=== PATIENT | male | born 1935 | race Caucasian/White ===

== ENCOUNTER 2017-10-25 12:28 | Inpatient (IN) | payer MEDICARE, OTHER ==
[~2017-10-25] VITALS: Ht 162.6 cm; Wt 84.8 kg
[~2017-10-25 12:28] MED LIST: ALBUTEROL2.5 MG/0.1 INH; AMARYL4 MG PO; ASPIR 8181 MG PO; BRILINTA90 MG PO; COLESTIPOL HCL1 G1 PO; COZAAR 50 MG TA50 M2 PO; DILTIAZEM 24HR180 M2 PO; IMDUR 30 MG TAB30 M1 PO; IRON325 PO; LANTUS100 UNIT/M SUBQ; LASIX 20 MG TAB20 MG PO; LASIX 40 MG TAB40 M2 PO; LEVAQUIN 500 M500 M2 PO; LIPITOR40 MG PO; LOPRESSOR50 PO; MIRAPEX0.5 MG PO; NEURONTIN 300300 M1 PO; NITROGLYCERIN0.4 MG SUBLING; NOVOLOG100 UNIT/1 SUBQ; OMEPRAZOLE20 M1 PO; POTASSIUM20 PO; PRAVACHOL40 MG PO; PREDNISONE 10 M10 MG PO; PREDNISONE 20 M20 MG PO; PROAIR HFA8.5 GM INH; SPIRIVA INH; SYMBICORT80 MCG/4.1 INH; TYLENOL325 MG PO
[2017-10-25 12:56] LABS: HEMATOCRIT 46.8 % (42.0-52.0); HEMOGLOBIN 15.3 gm/dL (14.0-18.0); MCH 25.8 pg (26.0-34.0); MCHC 32.8 g/dL (28.0-37.0); MCV 78.6 fL (80.0-100.0); NUCLEATED RBCS 0 /100WBC; PLATELET COUNT* 241 thou/uL (150-400); RBC 5.95 mil/uL (4.50-6.00); RDW-CV 15.5 % (10.5-14.5); WBC 19.6 thou/uL (4.0-11.0)
[2017-10-25 13:06] LABS: ANION GAP 7 mmol/L (7-16); BUN 12 mg/dL (7-18); CALCIUM 8.7 mg/dL (8.5-10.1); CHLORIDE 97 mmol/L (98-107); CO2 30 mmol/L (21-32); CREATININE 0.9 mg/dL (0.6-1.3); GLUCOSE 162 mg/dL (70-99); SODIUM 134 mmol/L (136-145)
[2017-10-25 13:07] LABS: APTT 24.6 Seconds (25.0-31.3); PROTIME 9.9 Seconds (9.20-11.50)
[2017-10-25 13:09] LABS: POTASSIUM 3.6 mmol/L (3.5-5.1)
[2017-10-25 13:16] LABS: ABSOLUTE LYMPHOCYTES 0.4 thou/uL (0.8-5.3); ABSOLUTE MONOCYTES 0.8 thou/uL (0.0-1.2); ABSOLUTE NEUTROPHILS 18.4 thou/uL (1.6-8.1); PLATELET ESTIMATE ADEQUATE
[2017-10-25 13:17] LABS: ANISOCYTOSIS 1+; POIKILOCYTOSIS 1+; TOXIC GRANULATION 1+
[2017-10-25 13:23] LABS: ALBUMIN 3.3 g/dL (3.4-5.0); ALKALINE PHOSPHATASE 87 U/L (46-116); CK-MB MASS 1.8 ng/mL (<0.5-3.6); LIPASE 113 U/L (73-393); MAGNESIUM 1.9 mg/dL (1.8-2.4); NT-PRO BRAIN NAT PEPTIDE 180 pg/mL (<300); SGOT 19 U/L (15-37); SGPT 22 U/L (30-65); TOTAL BILIRUBIN 0.7 mg/dL (<0.1-1.0); TOTAL PROTEIN 7.2 g/dL (6.4-8.2); TROPONIN-I LEVEL <0.06 ng/mL (<0.06)
[2017-10-25] MEDS ORDERED: COLESTID1 GM PO (13:42)
[2017-10-25 14:45] VITALS: BP 126/77
[2017-10-25 15:17] VITALS: BP 139/68
[2017-10-25] MEDS ORDERED: HUMALOG100 UNIT/1 SUBQ (15:34)
[2017-10-25 20:30] VITALS: BP 142/73
[2017-10-25 22:25] LABS: INFLUENZA B ANTIGEN None Detected (None Detect)
[2017-10-26] VITALS: BP 103/53
[2017-10-26 00:53] LABS: URINE BILIRUBIN NEGATIVE (Negative); URINE BLOOD TRACE (Negative); URINE CLARITY CLEAR; URINE COLOR YELLOW; URINE GLUCOSE-RANDOM NEGATIVE (Negative); URINE KETONES NEGATIVE (Negative); URINE LEUKOCYTES-REFLEX NEGATIVE (Negative); URINE NITRITE-REFLEX NEGATIVE (Negative); URINE PROTEIN NEGATIVE (Negative); URINE UROBILINOGEN 0.2 E.U./dl (0.2-1.0)
[2017-10-26 04:11] VITALS: BP 106/53
[2017-10-26 09:30] VITALS: BP 162/60
[2017-10-26 11:58] VITALS: BP 136/53
--- NOTE | 2017-10-26 12:16 | EKG ---
[place] [address] ELECTROCARDIOGRAM REPORT Name: LINDY SCANLON Room: [address] ADM IN R.#: [id number] Admission: 10/25/17 Attend Phys: Arjun Chase, Discharge: Date of : 39 Report #: [id number] THIS REPORT FOR: //name// [facility] ED Test Date: 2017-10-25 Test Time: 12:34:57 Pat Name: LINDY SCANLON Department: Room: [facility] Gender: M Inspector Subassembly: [place] : 1935 Requested By: Horacio Mcneill Order Number: [id number] MD: Arturo Leblanc Measurements Intervals [place] Rate: 83 P: -30 SD: 200 QRS: -53 QRSD: 110 T: 110 QT: 370 QTc: 435 Interpretive Statements Sinus rhythm Supraventricular complexes left axis LVH with secondary repolarization abnormality Compared to ECG 09/06/2017 07:39:26 no change Electronically Signed On 10-26-2017 12:16:45 MANAGER MEDICARE MARKETING by Arturo Leblanc [email or web address] <ELECTRONICALLY SIGNED> By: Arturo Leblanc MD, [facility] 10/26/17 1216 1234 1234 Arturo Leblanc MD, [facility] /EPI
--- NOTE | 2017-10-26 12:18 | EKG ---
[place] [address] ELECTROCARDIOGRAM REPORT Name: LINDY SCANLON Room: [address] ADM IN .R.#: [id number] Admission: 10/25/17 Attend Phys: Arjun Chase, Discharge: Date of : 39 Report #: [id number] THIS REPORT FOR: //name// [facility] ED Test Date: 2017-10-25 Test Time: 12:46:59 Pat Name: LINDY SCANLON Department: Room: [facility] Gender: M Rn Enterostomal: [place] : 1935 Requested By: Horacio Mcneill Order Number: [id number] MD: Arturo Leblanc Measurements Intervals [place] Rate: 85 P: [place]: QRS: -53 QRSD: 109 T: 102 QT: 365 QTc: 434 Interpretive Statements sinus rhythm with pac's Left anterior fascicular block Abnormal R-wave progression, early transition LVH with secondary repolarization abnormality Electronically Signed On 10-26-2017 12:17:53 SUPERVISOR GAS METER REPAIR by Arturo Leblanc [email or web address] <ELECTRONICALLY SIGNED> By: Arturo Leblanc MD, [facility] 10/26/17 1217 1246 45 Arturo Leblanc MD, [facility] /EPI
[2017-10-26 16:00] VITALS: BP 118/61
[2017-10-26 20:00] VITALS: BP 118/58
[2017-10-27 00:15] VITALS: BP 109/47
[2017-10-27 04:00] VITALS: BP 131/61
[2017-10-27 05:19] LABS: HEMATOCRIT 42.4 % (42.0-52.0); HEMOGLOBIN 13.9 gm/dL (14.0-18.0); MCH 25.9 pg (26.0-34.0); MCHC 32.9 g/dL (28.0-37.0); MCV 78.7 fL (80.0-100.0); MPV 7.7 fl. (7.2-11.1); RBC 5.38 mil/uL (4.50-6.00); RDW-CV 15.6 % (10.5-14.5); WBC 9.4 thou/uL (4.0-11.0)
[2017-10-27 08:00] VITALS: BP 135/70
[2017-10-27 08:41] LABS: ALBUMIN 2.7 g/dL (3.4-5.0); CREATININE 1.1 mg/dL (0.6-1.3); TOTAL BILIRUBIN 0.8 mg/dL (<0.1-1.0); TOTAL PROTEIN 5.6 g/dL (6.4-8.2)
[2017-10-27 11:51] VITALS: BP 124/68
[2017-10-27] MEDS ORDERED: TAMIFLU75 MG PO (16:06)
[2017-10-27] MEDS ORDERED: KEFLEX500 M1 PO (16:07)
[2017-10-27 16:23] VITALS: BP 124/68
--- NOTE | 2017-10-28 17:17 | CON ---
[address] [address] CONSULTATION Name: LINDY SCANLON Room: [address] IN .R.#: [id number] Admission: 10/25/17 Attend Phys: Arjun Chase, Discharge: 10/27/17 Date of : 39 Report #: [id number] THIS REPORT FOR: //name// CC: Rober Chase DATE OF SERVICE: 10/26/2017 HISTORY OF PRESENT ILLNESS: The patient is an 82-year-old white male who I was asked to see in the hospital today after he complained of chest pain. The patient has a long history of diabetes and hypertension. He has had multiple hospitalizations here at [facility]. He was admitted here in 2014 with COPD exacerbation. He does use an inhaler at home. He does have a history of severe sleep apnea. 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 The patient then presented on 09/03/2017 with chest pain and shortness of breath. He was seen by my partner, Dr. Dickerson. He underwent a cardiac catheterization. He was noted to be in atrial fibrillation. The cardiac catheterization performed on 09/03/2017 from the right femoral artery revealed 75% stenosis of the LAD, 90% narrowing of the distal LAD. Circumflex and right coronary had no significant disease. Ejection fraction 60%. Dr. Dickerson then placed drug-eluting stents in the LAD. He has apparently done well since that time. However, recently he has had a cough and not felt well. Yesterday, he felt sharp pain in the chest occurred off and on throughout the day. It lasted only a few seconds. There is no radiation of the pain. He had run a fever recently. Denied any increased shortness of breath or edema. He denied any palpitations or syncope. He had felt fatigued. He finally came to the Emergency Room last night. He was admitted for further evaluation and treatment. PAST MEDICAL HISTORY: Otherwise significant for umbilical hernia repair. He has diabetes, hypertension, sleep apnea, history of hiatal hernia, Mcclain esophagus. MEDICATIONS: His medications on admission consists of Colestid, albuterol nebulizer, diltiazem CD, aspirin, insulin, pravastatin, Imdur, Brilinta, furosemide, omeprazole, potassium. ALLERGIES: He has no known drug allergies. FAMILY HISTORY: Negative for heart disease. SOCIAL HISTORY: He is . He and his live in [place]. He is retired from [employer]. Quit smoking years ago[place] [address] CONSULTATION Name: LINDY SCANLON Room: [address] [place] [facility]#: [id number] Admission: 10/25/17 Attend Phys: Arjun Chase, Discharge: 10/27/17 Date of : 39 Report #: [id number] REVIEW OF SYSTEMS: He has had no history of liver disease, kidney disease, cancer, psychiatric illness, chronic skin condition. PHYSICAL EXAMINATION: GENERAL: Revealed an elderly male, lying in bed. He was coughing frequently. VITAL SIGNS: He had a blood pressure of 120/70, pulse 70, and his temperature last night of 100. Mucous members moist. HEENT: He is anicteric. Conjunctivae pink. NECK: Supple, no carotid bruits. CHEST: Revealed expiratory wheezes bilaterally. CARDIOVASCULAR: Regular rate and rhythm. No significant murmur. ABDOMEN: Obese, soft, nontender. EXTREMITIES: No edema. Dorsalis pedis pulse 1+ bilaterally. SKIN: Cool and dry. RADIOLOGICAL DATA: His ECG showed sinus rhythm, occasional PAC, left axis deviation. On the monitor last night, he had frequent PACs. His workup in the Emergency Room last night, portable chest x-ray showed normal heart size, clear lung styles. Carotid Doppler study last March showed no high-grade stenosis. Previous MRI of the head last March showed atrophy, white matter changes, multiple remote lacunar type infarctions. He had CT scan of the chest last night using a PE protocol that showed no pulmonary embolus, coronary calcification. LABORATORY DATA: His lab work last night, sodium 134, creatinine 0.9. Liver function studies were normal. Troponins 0.06. His white blood cell count 19.6, hemoglobin 15.3. IMPRESSION AND RECOMMENDATIONS: 1. Chest pain. Atypical for angina. Suspect noncardiac. Recommend no cardiac workup. 2. The patient had drug-eluting stents placed a month ago. I will continue aspirin and Brilinta. 3. Bronchitis. 4. Chronic obstructive pulmonary disease. 5. Hypertension. The patient has been on a calcium delta. 6. Diabetes. 7. Hyperlipidemia. The patient is on a statin drug. 8. History of Mcclain esophagus. 9. History of hiatal hernia. 10. Previous transient ischemic attack. 11. Paroxysmal atrial fibrillation. The patient does not appear to be a very good candidate for anticoagulation because of his history of gastrointestinal [address] [address] CONSULTATION Name: LINDY SCANLON Room: [address] IN [facility].#: [id number] Admission: 10/25/17 Attend Phys: Arjun Chase, Discharge: 10/27/17 Date of : 39 Report #: [id number]. However, if he has recurrent atrial arrhythmias, I would consider antiarrhythmic therapy. <ELECTRONICALLY SIGNED> By: Arturo Leblanc MD, FACC 10/28/17 1717 1023 2302Dro Leblanc MD, FACC /nt
== END 2017-10-27 18:50 | disposition home health service (06) | DRG 194 ==
LOC: M.ERS 12:28 → M.TBA-ER 14:21 → M.2W 14:21
PROVIDERS: Emergency Medicine Emergency Medical Services; ADMIT Family Medicine
DX: J10.1 Influenza due to other identified influenza virus with other respiratory manifestations (principal); I50.22 Chronic systolic (congestive) heart failure; R65.10 Systemic inflammatory response syndrome (SIRS) of non-infectious origin without acute organ dysfunction; E44.0 Moderate protein-calorie malnutrition; I25.119 Atherosclerotic heart disease of native coronary artery with unspecified angina pectoris; I48.0 Paroxysmal atrial fibrillation; Z96.651 Presence of right artificial knee joint; K22.70 Barrett's esophagus without dysplasia; E78.5 Hyperlipidemia, unspecified; I11.0 Hypertensive heart disease with heart failure; J44.9 Chronic obstructive pulmonary disease, unspecified; E11.65 Type 2 diabetes mellitus with hyperglycemia; Z79.4 Long term (current) use of insulin; Z87.891 Personal history of nicotine dependence; Z82.49 Family history of ischemic heart disease and other diseases of the circulatory system; Z95.5 Presence of coronary angioplasty implant and graft; Z98.42 Cataract extraction status, left eye; Z98.41 Cataract extraction status, right eye; Z90.49 Acquired absence of other specified parts of digestive tract; Z79.899 Other long term (current) drug therapy

== ENCOUNTER → 2017-12-18 | Outpatient (CLI) | payer MEDICARE, OTHER ==
[~2017-12-18] MED LIST changes: +AMOXICILLIN500 M1 PO; +CITRATE OF MAG296 ML PO; +COLACE 100 MG100 MG PO; +COLESTID1 GM PO; +HUMALOG100 UNIT/1 SUBQ; +KEFLEX500 M1 PO; +TAMIFLU75 MG PO
--- NOTE | 2017-12-18 14:55 | CARDNUC ---
[place] [address] CARDIAC NUCLEAR IMAGING REPORT Name: LINDY SCANLON Room: [facility]#: [id number] Admission: 12/18/17 Attend Phys: Dolores Jordan Discharge: Date of : 39 Date of Service: 12/18/17 1454 Report #: [id number] THIS REPORT FOR: //name// APPROVED REPORT Study performed: 12/18/2017 07:45:00 Exam: Nuclear Stress Test Indication: CAD , Chest pain Patient Location: Out-Patient Stress Tech: Liss Cooney Stress Nurse: Rani Dixon RN Ht: 5 ft 4 in Wt: 192 lbs BSA: 1.92 m2 BMI: 32.95 Medical History Medical History: Atrial Fibrillation, CAD s/p stent, CHF, Stroke/TIA, HTN, Hyperlipidemia, Diabetes Medications: colestipol, asa, brilinta, diltiazem, kcl, lasix, pravastatin, isosorbide Allergies: cipro, metronidazole Cardiac Risk Factors: Age, DM, HTN, Hyperlipidemia, Previous Cardiac Procedures: PCI Exercise History: Sedentary Meds Held (24 hrs): Isosorbide Stress Test Details Stress Test: Pharmacologic stress testing performed using 0.4 mg of regadenoson per 5 mL given IV over 10 seconds. Reason for pharmacologic stress test: physical limitation. HR Resting HR: 83 bpm Max Heart Rate (APMHR): 140 bpm Max HR Achieved: 106 bpm Target HR (85% APMHR): 119 bpm % of APMHR: 75 Recovery HR: 90 bpm HR response to stress: Normal HR response to stress BP Resting BP: 188/98 mmHg Max BP: 152/81 mmHg BP response to stress: Normal blood [place] [address] CARDIAC NUCLEAR IMAGING REPORT Name: LINDY SCANLON Room: [facility]#: [id number] Admission: 12/18/17 Attend Phys: Dolores Jordan Discharge: Date of : 39 Date of Service: 12/18/17 1454 Report #: [id number] ECG Resting ECG: Sinus Rhythm lvh Stress ECG: Sinus Rhythm ST Change: None Recovery ECG: nsr lvh Recovery ST Change: None Clinical Reason for Termination: Completed protocol Stress Symptoms: None Exercise duration: 0 min sec Exercise capacity: 1.0 METs Stress ECG Conclusion negative NM EXAM: Myocardial Perfusion REST/STRESS Imaging Protocol: Rest Tc-99m/Stress Tc-99m 1 day Resting Data Rest SPECT myocardial perfusion imaging was performed in supine position 30 minutes following the intravenous injection of 12.0 mCi of Tc-99m Sestamibi. Time of rest injection: 824 Time of rest imagin The images were gated to evaluate regional wall motion and calculate left ventricular ejection fraction. Administration Route: IV Administration Site: Right Hand Pharmacologic Stress Pharmacologic stress test was performed by injecting Regadenoson 0.4 mg IV push followed by the intravenous injection of 34.8 mCi of Tc-99m Sestamibi. Time of stress injection: 1030 Time of stress imagin Administration Route: IV Administration Site: Right Hand Heart Rate at time of stress injection: 106 bpm. Gated Stress SPECT was performed 40 minutes after stress injection. The images were gated to evaluate regional wall motion and calculate left ventricular ejection fraction. Prone imaging [place] [address] CARDIAC NUCLEAR IMAGING REPORT Name: LINDY SCANLON Room: [facility]#: [id number] Admission: 12/18/17 Attend Phys: Dolores [place] Discharge: Date of : 39 Date of Service: 12/18/17 1454 Report #: [id number] Study: Good Artifact: No artifact Lung Uptake: Normal Study Data At rest, the left ventricular ejection fraction was 75%.. Post stress, the left ventricular ejection was 79%.. SSS: 4 SRS: 3 SDS: 1 Perfusion SPECT images show a small mild intensity inferior defect which is noted to be fixed when compared to the SPECT rest images. There is uniform uptake of tracer in all other segments. The prone set shows normalization of the inferior defect indicating it is likely artifact. No reversible defects are seen. Wall Motion normal in all segments Nuclear Conclusion ECG Findings: negative for ischemia Clinical Findings: negative for ischemia Nuclear Findings: negative for ischemia Exercise Capacity: not assessed Left Ventricular Function: normal Risk Study: low Normal perfusion nuclear stress test. <Conclusion> negative <ELECTRONICALLY SIGNED> By: iTm Pickard MD, FACC 12/18/17 1454 1454 1454 Tim Pickard MD, FACC /INF
== END ==
LOC: M.NUC 12-09 12:13
DX: R07.89 Other chest pain (principal); I25.10 Atherosclerotic heart disease of native coronary artery without angina pectoris; I48.91 Unspecified atrial fibrillation; I50.9 Heart failure, unspecified; I63.8 Other cerebral infarction; I11.0 Hypertensive heart disease with heart failure; E78.5 Hyperlipidemia, unspecified; E11.9 Type 2 diabetes mellitus without complications; Z95.5 Presence of coronary angioplasty implant and graft

== ENCOUNTER 2018-01-11 19:36 | Emergency (ER) | payer MEDICARE, OTHER ==
[~2018-01-11] VITALS: Ht 162.6 cm; Wt 90.7 kg
--- NOTE | ~2018-01-11 | EKG ---
[place] [address] ELECTROCARDIOGRAM REPORT Name: LINDY SCANLON Room: [facility]#: [id number] Admission: 01/11/18 Attend Phys: Discharge: 01/11/18 Date of : 39 Report #: [id number] THIS REPORT FOR: //name// [facility] ED Test Date: 2018-01-11 Test Time: 19:41:05 Pat Name: LINDY SCANLON Department: Room: Gender: M Product Mgr: 9 : 1935 Requested By: Horacio Mcneill Order Number: [id number] MD: Measurements Intervals [place] Rate: 87 P: 13 TN: 191 QRS: -42 QRSD: 109 T: 112 QT: 378 QTc: 455 Interpretive Statements Pacemaker spikes or artifacts Sinus rhythm Supraventricular bigeminy Incomplete left bundle branch block LVH with secondary repolarization abnormality Artifact in lead(s) I,III,aVR,aVL,aVF,V4,V5,V6 and baseline wander in lead(s) III Compared to ECG 10/25/2017 12:46:59 Atrial premature complex(es) now present Left bundle-branch block now present Left anterior fascicular block no longer present [email or web address] By: 40 40 Epiphany EpiphanyMD /MARÍA
--- NOTE | ~2018-01-11 | EKG ---
[place] [address] ELECTROCARDIOGRAM REPORT Name: LINDY SCANLON Room: [facility]#: [id number] Admission: 01/11/18 Attend Phys: Discharge: 01/11/18 Date of : 39 Report #: [id number] THIS REPORT FOR: //name// [facility] ED Test Date: 2018-01-11 Test Time: 21:42:52 Pat Name: LINDY SCANLON Department: Room: Gender: M Saturator: CHACHO : 1935 Requested By: Horacio Mcneill Order Number: [id number] MD: Measurements Intervals [place] Rate: 81 P: 21 FL: 207 QRS: -37 QRSD: 98 T: 26 QT: 404 QTc: 469 Interpretive Statements Sinus rhythm Ventricular bigeminy Probable left atrial enlargement Left axis deviation Nonspecific T abnormalities, lateral leads Compared to ECG 10/25/2017 12:46:59 Ventricular premature complex(es) now present Left-axis deviation now present T-wave abnormality now present Left anterior fascicular block no longer present Left ventricular hypertrophy no longer present Early repolarization no longer present [email or web address] By: 214 41 Epiphany Epiphany, /MARÍA
[~2018-01-11 19:36] MED LIST changes: -AMOXICILLIN500 M1 PO; -CITRATE OF MAG296 ML PO; -COLACE 100 MG100 MG PO
[2018-01-11 20:08] LABS: HEMOGLOBIN 13.9 gm/dL (14.0-18.0); MCH 26.9 pg (26.0-34.0); MCV 81.3 fL (80.0-100.0); MPV 7.7 fl. (7.2-11.1); NUCLEATED RBCS 0 /100WBC; PLATELET COUNT* 263 thou/uL (150-400); RBC 5.17 mil/uL (4.50-6.00); RDW-CV 17.5 % (10.5-14.5); WBC 12.3 thou/uL (4.0-11.0)
[2018-01-11 20:15] LABS: ANION GAP 9 mmol/L (7-16); BUN 14 mg/dL (7-18); CALCIUM 9.1 mg/dL (8.5-10.1); CHLORIDE 103 mmol/L (98-107); CO2 27 mmol/L (21-32); CREATININE 0.8 mg/dL (0.6-1.3); GLUCOSE 210 mg/dL (70-99); POTASSIUM 3.9 mmol/L (3.5-5.1); SODIUM 139 mmol/L (136-145)
[2018-01-11 20:26] LABS: ALBUMIN 3.4 g/dL (3.4-5.0); ALKALINE PHOSPHATASE 56 U/L (46-116); LIPASE 76 U/L (73-393); MAGNESIUM 1.9 mg/dL (1.8-2.4); NT-PRO BRAIN NAT PEPTIDE 96 pg/mL (<300); SGOT 14 U/L (15-37); SGPT 26 U/L (30-65); TOTAL BILIRUBIN 0.4 mg/dL (<0.1-1.0); TROPONIN-I LEVEL <0.06 ng/mL (<0.06)
[2018-01-11 20:34] LABS: ABSOLUTE BASOPHILS 0.1 thou/uL (0.0-0.2); ABSOLUTE LYMPHOCYTES 0.5 thou/uL (0.8-5.3); ABSOLUTE MONOCYTES 0.4 thou/uL (0.0-1.2); ABSOLUTE NEUTROPHILS 11.3 thou/uL (1.6-8.1)
[2018-01-11 20:35] LABS: CLUMPED PLTS FEW; PLATELET ESTIMATE ADEQUATE
[2018-01-11 22:49] VITALS: BP 106/68
== END 2018-01-11 22:51 | disposition home or self-care (01) ==
LOC: M.ERS 19:36
PROVIDERS: Emergency Medicine Emergency Medical Services
DX: M54.6 Pain in thoracic spine (principal); J32.9 Chronic sinusitis, unspecified; I48.91 Unspecified atrial fibrillation; I25.10 Atherosclerotic heart disease of native coronary artery without angina pectoris; E11.9 Type 2 diabetes mellitus without complications; J44.9 Chronic obstructive pulmonary disease, unspecified; Z95.5 Presence of coronary angioplasty implant and graft; Z90.49 Acquired absence of other specified parts of digestive tract; Z79.4 Long term (current) use of insulin

== ENCOUNTER 2018-02-26 16:20 | Emergency (ER) | payer MEDICARE, OTHER ==
[~2018-02-26] VITALS: Ht 165.1 cm; Wt 93.6 kg
[2018-02-26] MEDS ORDERED: PREDNISONE 10 M10 MG PO (16:32)
[2018-02-26 16:51] LABS: HEMATOCRIT 46.4 % (42.0-52.0); HEMOGLOBIN 15.4 gm/dL (14.0-18.0); MCH 27.2 pg (26.0-34.0); MCHC 33.3 g/dL (28.0-37.0); MCV 81.7 fL (80.0-100.0); MPV 8.6 fl. (7.2-11.1); NUCLEATED RBCS 0 /100WBC; PLATELET COUNT* 257 thou/uL (150-400); RBC 5.69 mil/uL (4.50-6.00); RDW-CV 14.9 % (10.5-14.5); WBC 12.9 thou/uL (4.0-11.0)
[2018-02-26 16:56] LABS: ANION GAP 9 mmol/L (7-16); BUN 9 mg/dL (7-18); CALCIUM 9.3 mg/dL (8.5-10.1); CHLORIDE 100 mmol/L (98-107); CO2 29 mmol/L (21-32); CREATININE 0.9 mg/dL (0.6-1.3); GLUCOSE 213 mg/dL (70-99); SODIUM 138 mmol/L (136-145)
[2018-02-26 16:59] LABS: PROTIME 9.7 Seconds (9.20-11.50)
[2018-02-26 17:07] LABS: ALKALINE PHOSPHATASE 82 U/L (46-116); LIPASE 67 U/L (73-393); NT-PRO BRAIN NAT PEPTIDE 128 pg/mL (<300); SGOT 18 U/L (15-37); SGPT 23 U/L (30-65); TOTAL BILIRUBIN 0.7 mg/dL (<0.1-1.0); TOTAL PROTEIN 7.8 g/dL (6.4-8.2); TROPONIN-I LEVEL <0.06 ng/mL (<0.06)
[2018-02-26 17:27] LABS: ABSOLUTE LYMPHOCYTES 1.7 thou/uL (0.8-5.3); ABSOLUTE MONOCYTES 0.3 thou/uL (0.0-1.2)
[2018-02-26 17:29] LABS: CLUMPED PLTS FEW; PLATELET ESTIMATE ADEQUATE
[2018-02-26] MEDS ORDERED: CITRATE OF MAG296 ML PO (17:38)
[2018-02-26] MEDS ORDERED: COLACE 100 MG100 MG PO (17:38)
[2018-02-26] MEDS ORDERED: AMOXICILLIN500 M1 PO (17:38)
[2018-02-26 17:47] VITALS: BP 170/54
--- NOTE | 2018-02-27 09:53 | EKG ---
[place] [address] ELECTROCARDIOGRAM REPORT Name: LINDY SCANLON Room: [facility]#: [id number] Admission: 02/26/18 Attend Phys: Discharge: 02/26/18 Date of : 39 Report #: [id number] THIS REPORT FOR: //name// [facility] ED Test Date: 2018-02-26 Test Time: 16:59:11 Pat Name: LINDY SCANLON Department: Room: Gender: Family Resource Specialist: July MACKEY : 1935 Requested By: Wesley Cardenas Order Number: [id number] MD: Arturo Leblanc Measurements Intervals [place] Rate: 77 P: -35 [place]: 164 QRS: -45 QRSD: 98 T: 103 QT: 383 QTc: 434 Interpretive Statements Sinus rhythm Multiple premature complexes, vent & supraven Left anterior fascicular block Abnormal R-wave progression, late transition Nonspecific T abnormalities, lateral leads Compared to ECG 01/11/2018 21:42:52 Ventricular premature complex seen T-wave abnormality still present Electronically Signed On 02-27-2018 9:53:17 CDT by Arturo Leblanc [email or web address] <ELECTRONICALLY SIGNED> By: Arturo Leblanc MD, [facility] 02/27/18 0953 1659 1659 Arturo Leblanc MD, [facility] /EPI
== END 2018-02-26 17:48 | disposition home or self-care (01) ==
LOC: M.ERS 16:20
PROVIDERS: Emergency Medicine
DX: H66.91 Otitis media, unspecified, right ear (principal); K59.00 Constipation, unspecified; I48.91 Unspecified atrial fibrillation; I25.10 Atherosclerotic heart disease of native coronary artery without angina pectoris; J44.9 Chronic obstructive pulmonary disease, unspecified; E11.9 Type 2 diabetes mellitus without complications; Z96.651 Presence of right artificial knee joint; Z90.49 Acquired absence of other specified parts of digestive tract; Z79.4 Long term (current) use of insulin

== ENCOUNTER → 2018-03-27 | Outpatient (CLI) | payer MEDICARE, OTHER ==
[~2018-03-27] MED LIST changes: +AMOXICILLIN500 M1 PO; +CITRATE OF MAG296 ML PO; +COLACE 100 MG100 MG PO
[2018-03-27 16:35] LABS: ABSOLUTE BASOPHILS 0.1 thou/uL (0.0-0.2); ABSOLUTE EOSINOPHILS 0.1 thou/uL (0.0-0.7); ABSOLUTE LYMPHOCYTES 1.6 thou/uL (0.8-5.3); ABSOLUTE MONOCYTES 0.8 thou/uL (0.0-1.2); ABSOLUTE NEUTROPHILS 10.8 thou/uL (1.6-8.1); EOSINOPHILS 0.5 %; HEMATOCRIT 41.5 % (42.0-52.0); HEMOGLOBIN 13.5 gm/dL (14.0-18.0); LYMPHOCYTES 11.9 %; MCH 26.2 pg (26.0-34.0); MCHC 32.6 g/dL (28.0-37.0); MCV 80.3 fL (80.0-100.0); MONOCYTES 6.1 %; MPV 8.2 fl. (7.2-11.1); NUCLEATED RBCS 0 /100WBC; PLATELET COUNT* 298 thou/uL (150-400); POLYS 80.5 %; RBC 5.17 mil/uL (4.50-6.00); RDW-CV 14.6 % (10.5-14.5); WBC 13.4 thou/uL (4.0-11.0)
== END ==
LOC: M.LAB 16:16
PROVIDERS: Nurse Practitioner Family
DX: K92.1 Melena (principal); I25.10 Atherosclerotic heart disease of native coronary artery without angina pectoris

== ENCOUNTER → 2018-04-14 | Outpatient (CLI) | payer MEDICARE, OTHER ==
--- NOTE | 2018-05-01 08:29 | CARD ---
[address] [address] CARDIAC CATH REPORT Name: LIND[facility] SCANLON [id number] Admission: 04/14/18 Attend Phys: Frandy He MD Discharge: Date of : 39 Report #: [id number] THIS REPORT FOR: //name// CC: Rober He DATE OF SERVICE: 04/29/2018 Cardiac Procedure INDICATION: Possible atrial fibrillation. PROCEDURE: BioMonitor loop recorder implantation. PROCEDURE DESCRIPTION: After informed consent was obtained, the patient brought to the cardiac holding area. The area of the chest was prepped and draped in sterile fashion. The fourth intercostal space, left of the sternum was identified. Local anesthesia was achieved with 1% lidocaine. After initial incision was made, a pocket was made for the BioMonitor device using the provided dilator. A BioMonitor device was then inserted. The skin was then closed with several Steri-Strips. The patient tolerated the procedure well without complication. IMPRESSION: 1. Possible underlying atrial fibrillation. 2. Successful implantation of BioMonitor loop recorder. <ELECTRONICALLY SIGNED> By: Frandy He MD, [facility] 05/01/18 0829 1627 0319Microsemary He MD, FACC /nt
== END ==
LOC: M.CL 12:14
DX: I48.91 Unspecified atrial fibrillation (principal); J44.9 Chronic obstructive pulmonary disease, unspecified; Z90.49 Acquired absence of other specified parts of digestive tract; Z98.890 Other specified postprocedural states; Z96.652 Presence of left artificial knee joint; Z79.01 Long term (current) use of anticoagulants; Z86.73 Personal history of transient ischemic attack (TIA), and cerebral infarction without residual deficits; Z79.899 Other long term (current) drug therapy; Z79.82 Long term (current) use of aspirin

== ENCOUNTER 2021-03-07 18:56 | Emergency (ER) | payer MEDICARE ==
[~2021-03-07] VITALS: Ht 162.6 cm; Wt 85.7 kg
[2021-03-07 19:57] LABS: ABSOLUTE BASOPHILS 0.1 thou/uL (0.0-0.2); ABSOLUTE EOSINOPHILS 0.2 thou/uL (0.0-0.7); ABSOLUTE LYMPHOCYTES 2.1 thou/uL (0.8-5.3); ABSOLUTE MONOCYTES 0.8 thou/uL (0.0-1.2); ABSOLUTE NEUTROPHILS 7.8 thou/uL (1.6-8.1); EOSINOPHILS 1.6 %; HEMATOCRIT 46.7 % (42.0-52.0); HEMOGLOBIN 15.4 gm/dL (14.0-18.0); LYMPHOCYTES 19.4 %; MCH 25.4 pg (26.0-34.0); MONOCYTES 7.4 %; MPV 8.3 fl. (7.2-11.1); NUCLEATED RBCS 0 /100WBC; PLATELET COUNT* 284 thou/uL (150-400); POLYS 70.6 %; RBC 6.06 mil/uL (4.50-6.00); RDW-CV 16.1 % (10.5-14.5)
[2021-03-07 20:06] LABS: CALCIUM 8.8 mg/dL (8.5-10.1); POTASSIUM 4.5 mmol/L (3.5-5.1)
[2021-03-07 20:10] LABS: MAGNESIUM 1.9 mg/dL (1.8-2.4); TOTAL BILIRUBIN 0.4 mg/dL (<0.1-1.0)
[2021-03-07 20:18] LABS: PROTIME 10.6 Seconds (9.20-11.50)
[2021-03-07 20:51] VITALS: BP 144/79
[2021-03-07 21:01] LABS: URINE BILIRUBIN NEGATIVE (Negative); URINE BLOOD NEGATIVE (Negative); URINE CLARITY CLEAR; URINE COLOR YELLOW; URINE GLUCOSE-RANDOM NEGATIVE (Negative); URINE KETONES NEGATIVE (Negative); URINE LEUKOCYTES-REFLEX NEGATIVE (Negative); URINE NITRITE-REFLEX NEGATIVE (Negative); URINE PROTEIN NEGATIVE (Negative); URINE SPECIFIC GRAVITY 1.025 (1.005-1.030); URINE UROBILINOGEN 0.2 E.U./dl (0.2-1.0)
--- NOTE | 2021-03-08 08:40 | EKG ---
[place] [address] ELECTROCARDIOGRAM REPORT Name: LINDY SCANLON Room: [facility]#: [id number] Admission: 03/07/21 Attend Phys: Discharge: 03/07/21 Date of : 39 Date of Service: 03/07/211954 Report #: [id number] THIS REPORT FOR: //name// [facility] ED Test Date: 2021-03-07 Test Time: 19:55:07 Pat Name: LINDY SCANLON Department: Room: Gender: Keno Manager: : 1935 Requested By: Michelle Wong Order Number: [id number] MD: Frandy He Measurements Intervals [place] Rate: 60 P: -54 [place]: 293 QRS: -61 QRSD: 115 T: 62 QT: 431 QTc: 431 Interpretive Statements Sinus rhythm Prolonged UT interval Incomplete left bundle branch block Probable left ventricular hypertrophy Compared to ECG 02/26/2018 16:59:11 First degree AV block now present Electronically Signed On 03-08-2021 8:40:33 CDT by Frandy He [email or web address] <ELECTRONICALLY SIGNED> By: Frandy He MD, FACC 03/08/2140 54 54 Frandy He MD, [facility] /EPI
== END 2021-03-07 20:51 | disposition home or self-care (01) ==
LOC: M.ERS 18:56
PROVIDERS: Emergency Medicine
DX: R79.89 Other specified abnormal findings of blood chemistry (principal); Z71.1 Person with feared health complaint in whom no diagnosis is made; I48.91 Unspecified atrial fibrillation; I25.10 Atherosclerotic heart disease of native coronary artery without angina pectoris; E11.9 Type 2 diabetes mellitus without complications; J44.9 Chronic obstructive pulmonary disease, unspecified; Z79.899 Other long term (current) drug therapy; Z79.82 Long term (current) use of aspirin; Z96.651 Presence of right artificial knee joint; Z98.890 Other specified postprocedural states

== ENCOUNTER 2021-08-10 12:35 | Emergency (ER) | payer MEDICARE ==
[~2021-08-10] VITALS: Ht 160 cm; Wt 86.2 kg
[2021-08-10] MEDS ORDERED: COLESTIPOL HCL1 G1 PO (12:56)
[2021-08-10] MEDS ORDERED: PLAVIX 75 MG TA75 MG PO (12:56)
[2021-08-10] MEDS ORDERED: PRAVACHOL40 MG PO (12:56)
[2021-08-10] MEDS ORDERED: BYSTOLIC 5 MG5 MG PO (12:57)
[2021-08-10] MEDS ORDERED: FUROSEMIDE 20 M20 MG PO (12:57)
[2021-08-10] MEDS ORDERED: PROTONIX40 M2 PO (12:58)
[2021-08-10] MEDS ORDERED: LO-DOSE ASPIRIN81 M1 PO (12:58)
[2021-08-10] MEDS ORDERED: IMDUR 30 MG TAB30 M1 PO (12:58)
[2021-08-10] MEDS ORDERED: NOVOLOG FL100 UNIT/M (12:59)
[2021-08-10] MEDS ORDERED: LEVEMIR100 UNIT/1 (12:59)
[2021-08-10] MEDS ORDERED: PRESERVISION T1 EACH PO (12:59)
[2021-08-10] MEDS ORDERED: BACTRIM DS TAB1 EAC1 PO (13:59)
[2021-08-10 14:17] VITALS: BP 138/72
== END 2021-08-10 14:18 | disposition home or self-care (01) ==
LOC: M.ERS 12:35
DX: L03.116 Cellulitis of left lower limb (principal); E11.9 Type 2 diabetes mellitus without complications; J44.9 Chronic obstructive pulmonary disease, unspecified; Z79.82 Long term (current) use of aspirin; Z90.49 Acquired absence of other specified parts of digestive tract; Z79.4 Long term (current) use of insulin; Z79.899 Other long term (current) drug therapy

== ENCOUNTER 2021-09-04 19:50 | Emergency (ER) | payer MEDICARE ==
[~2021-09-04] VITALS: Ht 162.6 cm; Wt 87.5 kg
[~2021-09-04 19:50] MED LIST changes: +BACTRIM DS TAB1 EAC1 PO; +BYSTOLIC 5 MG5 MG PO; +FUROSEMIDE 20 M20 MG PO; +LEVEMIR100 UNIT/1; +LO-DOSE ASPIRIN81 M1 PO; +NOVOLOG FL100 UNIT/M; +PLAVIX 75 MG TA75 MG PO; +PRESERVISION T1 EACH PO; +PROTONIX40 M2 PO
[2021-09-04 20:48] LABS: ABSOLUTE LYMPHOCYTES 1.9 thou/uL (0.8-5.3); MCH 21.4 pg (26.0-34.0); NUCLEATED RBCS 0 /100WBC
[2021-09-04 20:50] LABS: ABSOLUTE BASOPHILS 0.1 thou/uL (0.0-0.2); ABSOLUTE EOSINOPHILS 0.2 thou/uL (0.0-0.7); ABSOLUTE MONOCYTES 0.9 thou/uL (0.0-1.2); ABSOLUTE NEUTROPHILS 8.5 thou/uL (1.6-8.1); BASOPHILS 0.8 %; EOSINOPHILS 1.8 %; HEMATOCRIT 44.1 % (42.0-52.0); HEMOGLOBIN 13.7 gm/dL (14.0-18.0); LYMPHOCYTES 16.6 %; MCHC 31.2 g/dL (28.0-37.0); MCV 68.5 fL (80.0-100.0); MONOCYTES 7.9 %; MPV 8.4 fl. (7.2-11.1); PLATELET COUNT* 280 thou/uL (150-400); POLYS 72.9 %; RBC 6.43 mil/uL (4.50-6.00); RDW-CV 18.5 % (10.5-14.5); WBC 11.6 thou/uL (4.0-11.0)
[2021-09-04 21:00] LABS: PROTIME 10.3 Seconds (9.20-11.50)
[2021-09-04 21:03] LABS: ALBUMIN 3.9 g/dL (3.4-5.0); TOTAL BILIRUBIN 0.5 mg/dL (<0.1-1.0); TOTAL PROTEIN 7.6 g/dL (6.4-8.2)
[2021-09-04 21:19] VITALS: BP 187/121
[2021-09-04 21:28] LABS: PLATELET ESTIMATE ADEQUATE
[2021-09-04 21:34] LABS: HYPOCHROMASIA Occasional; LARGE PLATELETS OCCASIONAL; MICROCYTES Occasional
== END 2021-09-04 21:21 | disposition home or self-care (01) ==
LOC: M.ERS 19:50
PROVIDERS: Emergency Medicine
DX: R79.9 Abnormal finding of blood chemistry, unspecified (principal); I25.10 Atherosclerotic heart disease of native coronary artery without angina pectoris; E11.9 Type 2 diabetes mellitus without complications; J44.9 Chronic obstructive pulmonary disease, unspecified; I48.91 Unspecified atrial fibrillation; Z79.82 Long term (current) use of aspirin; Z79.899 Other long term (current) drug therapy; Z98.890 Other specified postprocedural states

== ENCOUNTER 2021-09-12 13:23 | Inpatient (IN) | payer MEDICARE ==
[~2021-09-12] VITALS: Ht 162.6 cm; Wt 84.4 kg
[2021-09-12 13:30] VITALS: BP 167/67
[2021-09-12] MEDS ORDERED: ELIQUIS5 MG PO (13:33)
[2021-09-12 14:54] LABS: HEMATOCRIT 44.1 % (42.0-52.0); HEMOGLOBIN 13.6 gm/dL (14.0-18.0); MCH 21.1 pg (26.0-34.0); MCHC 30.8 g/dL (28.0-37.0); MCV 68.5 fL (80.0-100.0); MPV 8.6 fl. (7.2-11.1); NUCLEATED RBCS 0 /100WBC; PLATELET COUNT* 187 thou/uL (150-400); RBC 6.44 mil/uL (4.50-6.00); RDW-CV 18.3 % (10.5-14.5); WBC 19.7 thou/uL (4.0-11.0)
[2021-09-12 15:06] LABS: CALCIUM 8.3 mg/dL (8.5-10.1); POTASSIUM 3.9 mmol/L (3.5-5.1)
[2021-09-12 15:07] LABS: APTT 28.7 Seconds (25.0-31.3); PROTIME 10.4 Seconds (9.20-11.50)
[2021-09-12 15:18] LABS: ALBUMIN 3.8 g/dL (3.4-5.0); CK-MB MASS 1.5 ng/mL (<0.5-3.6); MAGNESIUM 1.8 mg/dL (1.8-2.4); TOTAL BILIRUBIN 0.9 mg/dL (<0.1-1.0); TOTAL PROTEIN 7.6 g/dL (6.4-8.2)
[2021-09-12 15:31] LABS: ABSOLUTE LYMPHOCYTES 1.6 thou/uL (0.8-5.3); ABSOLUTE MONOCYTES 0.8 thou/uL (0.0-1.2); ABSOLUTE NEUTROPHILS 17.3 thou/uL (1.6-8.1); CLUMPED PLTS FEW; PLATELET ESTIMATE ADEQUATE
[2021-09-12 15:34] LABS: LARGE PLATELETS OCCASIONAL
[2021-09-12 15:39] LABS: ANISOCYTOSIS 1+; MICROCYTES 2+
[2021-09-12 19:59] VITALS: BP 125/65
[2021-09-12 23:59] VITALS: BP 159/61
[2021-09-13] VITALS (7 sets, daily range): BP systolic 132–172; BP diastolic 59–87
--- NOTE | 2021-09-13 02:59 | NUR ---
PT ADMIT TO ROOM 204. A&O X4. COOPERATIVE PLEASENT. DENIES CP OR DISCOMFORT. HOME O2 AT 3 LITERS NC. 6 LITERS NC HERE. UNABLE TO VERIFY PTS MEDS BC WENT HOME AND IS IN BED. SHE KEEPS A CARD OF MEDICATIONS FOR HIM. [email or web address]. 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 PT STATES HE HAS SOMETHING IMPLANTED IN HIS CHEST BUT HE DOESN'T KNOW WHAT IT'S CALLED. HE SAID IT IS NOT A PACE MAKER. WHEN ASKED IF IT WAS AN AICD, HE SAID NO.
--- NOTE | 2021-09-13 07:20 | NUR ---
CHANGE OF SHIFT REPORT GIVEN PATIENT SEEN AT BEDSIDE, IN BED RESTING ASSUMED PATIENT CARE
--- NOTE | 2021-09-13 09:38 | NUR ---
CM ASSESSMENT: PT A&O. PT INFORMS THAT HE IS NORMALLY INDEPENDENT WITH ADL'S, AND DRIVES. PT RESIDES AT HOME WITH SPOUSE. PT INFORMS THAT HE USES BIPAP AND HOME O2. PT HAS 0 HX OF HH OR SNF. CM TO F/U WITH PT'S SPOUSE AND SON VINAYAK TO CONFIRM THE ABOVE INFO. CM D/C PLANNING NEEDS TBD AT THIS TIME, BUT PT MAY BENEFIT FROM HH AT D/C. CM WILL REMAIN AVAILABLE TO ASSIST AND FOLLOW NEEDED.
--- NOTE | 2021-09-13 11:47 | EKG ---
[place] [address] ELECTROCARDIOGRAM REPORT Name: LINDY SCANLON Room: [address] M[address]R.#: [id number] Admission: 09/12/21 Attend Phys: Isma Chaudhary Discharge: Date of : 39 Date of Service: 09/12/21 1330 Report #: [id number] THIS REPORT FOR: //name// [facility] ED Test Date: 2021-09-12 Test Time: 13:30:14 Pat Name: LINDY SCANLON Department: Room: [facility] Gender: M Document Imaging Manager: LANE : 1935 Requested By: Abdulkadir Watson Order Number: [id number] MD: José Manuel Dickerson Measurements Intervals [place] Rate: 102 P: -53 [place]: 193 QRS: -65 QRSD: 116 T: 102 QT: 389 QTc: 507 Interpretive Statements Sinus tachycardia with occasional PACs and a brief pause LVH with IVCD Left axis deviation Since the prior tracing, the heart rate increased, PACs are noted, and a brief pause is noted Electronically Signed On 09-13-2021 11:47:18 RN INTEGRITY by José Manuel Dickerson [email or web address] <ELECTRONICALLY SIGNED> By: José Manuel Dickerson MD, FACC 09/13/21 1147 1330 1330 José Manuel Dickerson MD, FACC /EPI
[2021-09-14] VITALS: BP 151/77
[2021-09-14 04:00] VITALS: BP 149/84
--- NOTE | 2021-09-14 04:44 | NUR ---
PT A&O X 3-4, FORGETFUL, CONFUSED AT TIMES. ON 5L. MEDS GIVEN ORDERED. TYLENOL GIVEN X 1 PER PT REQUEST FOR LEG PAIN. UP WITH 1. BED ALRM ON FOR SAFETY. WILL CONTINUE TO MONITOR.
[2021-09-14 08:00] VITALS: BP 169/93
[2021-09-14 12:00] VITALS: BP 143/77
[2021-09-14] MEDS ORDERED: LEVOFLOXACIN500 MG PO (12:32)
[2021-09-14] MEDS ORDERED: VENTOLIN HFA 1818 GM INH (12:32)
[2021-09-14] MEDS ORDERED: PREDNISONE 10 M10 MG PO (12:32)
[2021-09-14 13:09] VITALS: BP 167/93
--- NOTE | 2021-09-14 14:43 | NUR ---
PLAN FOR THE PT TO D/C HOME TODAY WITH HH. HOWEVER PT AND SPOUSE DECLINE DESPITE EDUCATION AND ENCOURAGEMENT FROM BOTH PHYSICIAN AND CM. NO OTHER CM D/C PLANNING NEEDS ANTICIPATED.
--- NOTE | 2021-09-14 16:25 | NUR ---
1500 - patient verbalized understanding of d/c paperwork and new scripts. Info relayed to son as patient and asked. Patient has all personal belongings, going home on his home O2 tank with and daughter. IV taken out and tele monitor taken off.
== END 2021-09-14 14:40 | disposition home or self-care (01) | DRG 189 ==
LOC: M.ERS 13:23 → M.TBA-ER 15:59 → M.2W 15:59 → M.TBA-ER 15:59 → M.2W 09-13 00:23
PROVIDERS: Emergency Medicine; ADMIT Internal Medicine; ATTEND Internal Medicine
DX: J96.21 Acute and chronic respiratory failure with hypoxia (principal); J44.1 Chronic obstructive pulmonary disease with (acute) exacerbation; Z79.01 Long term (current) use of anticoagulants; K21.9 Gastro-esophageal reflux disease without esophagitis; I25.10 Atherosclerotic heart disease of native coronary artery without angina pectoris; E11.9 Type 2 diabetes mellitus without complications; I10 Essential (primary) hypertension; Z95.5 Presence of coronary angioplasty implant and graft; E78.5 Hyperlipidemia, unspecified; I48.0 Paroxysmal atrial fibrillation; Z90.49 Acquired absence of other specified parts of digestive tract; Z20.822 Contact with and (suspected) exposure to COVID-19